=== PATIENT | female | born 1955 | race Caucasian/White ===

== ENCOUNTER 2018-06-30 09:09 | Inpatient (IN) | payer BC ==
[2018-06-30] MEDS ORDERED: SODIUM CHLORIDE 1,000 ML IV STA (09:18)
--- NOTE | 2018-06-30 09:31 | PDOC ---
History of Present Illness - General Chief Complaint: Pain Stated Complaint: RT ARM PAIN, ABD AND LIGHT HEADED Time Seen by Provider: 06/30/18 09:18 History Source: Patient Exam Limitations: No Limitations - History of Present Illness Initial Comments: 06/30/18 10:11 Jordeon 63 YOF with h/o diverticulosis and diverticulitis, breast ca s/p lymph node dissection and mastectomy, presenting with intermittent LLQ AP x 5 days, unrelieved with eating or NSAID. Feels similar to prior uncomplicated diverticulitis. Also right upper arm pain x 1 month, worse with moving; denies trauma or strenuous activity or heavy lifting. No swelling or h/o DVT/PE. No diarrhea, normal BM, nonbloody; no constipation, n/v, f/c, urinary sx. No cp or sob, headache or dizziness. Past History - Past Medical History Allergies/Adverse Reactions: Allergies Allergy/AdvReac Type Severity Reaction Status Date / Time No Known Allergies Allergy Verified 06/30/18 09:13 Home Medications: Ambulatory Orders NK [No Known Home Medication] 06/30/18 Cancer: Yes (Rt breast) COPD: No - Immunization History Immunization Up to Date: Yes - Suicide/Smoking/Psychosocial Hx Smoking History: Never smoked Have you smoked in the past 12 months: No Number of Cigarettes Smoked Daily: 0 Cigars Per Day: 0 Hx Alcohol Use: No Substance Use Type: None Review of Systems - Review of Systems Able to Perform ROS?: Yes Comments:: 06/30/18 10:08 Constitutional: no fevers or chills. HEENT: no headache or dizziness. No congestion. No visual/hearing disturbances. CVS: no cp or syncope. No palpitations. Resp: no sob. No cough. Abdomen: no nausea or vomiting. +abdominal pain. Genitourinary: no urinary sx, hematuria. No dysuria, frequency or urgency. MUSCULOSKELETAL: No joint pain and swelling. No neck or back pain. +arm pain. SKIN: no redness or skin changes, no discharge, no rash. No wounds. Hematologic: no easy bruising/bleeding. NEUROLOGIC: No headache, dizziness, LOC or altered mental status. No weakness, numbness or tingling. All other systems reviewed and negative, or as documented in HPI. *Physical Exam - Vital Signs Last Vital Signs Temp Pulse Resp BP Pulse Ox 98.4 F 104 H 18 137/94 98 06/30/18 09:15 06/30/18 09:15 06/30/18 09:15 06/30/18 09:15 06/30/18 09:15 - Physical Exam Comments: 06/30/18 10:09 General: Well appearing, awake and alert, NAD. HEENT: NCAT, PERRL, EOMI, clear conjunctiva, anicteric, moist mucus membranes, clear oropharynx, no oral lesions.. Neck: neck supple, FROM Resp: CTAB, normal and even respirations, no respiratory distress CVS: RRR, no murmurs, 2+ peripheral pulses throughout, no peripheral edema Abdomen: soft, +LLQ TTP with guarding, no rebound. no peritoneal signs. No CVAT Back: nontender, normal inspection and ROM MSK: no edema, FIELDS x4, ROM intact. No clubbing or cyanosis. normal bulk and tone. Extrem: no calf tenderness Neuro: alert, oriented appropriately; no focal neurologic deficits Skin: warm and well perfused, cap refill <2 sec, normal color Heart Score/ECG Review - ECG Impressions Normal ECG: Yes Comment:: 06/30/18 12:35 EKG normal sinus rhythm, no interval abnormalities, narrow QRS, ST and T wave segments and morphology normal. Nonspecific T wave abnormalities ED Treatment Course - LABORATORY CBC & Chemistry Diagram: 06/30/18 09:20 06/30/18 09:20 Medical Decision Making - Medical Decision Making 06/30/18 12:35 DDx abdominal pain: Renal colic, biliary colic, metabolic/electrolyte derangements. GERD, PUD, esophageal spasm, pancreatitis, hepatitis, constipation , colitis, gastroenteritis, cholecystitis, UTI, pyelonephritis, ileus, SBO, medication side effect, hernia, appendicitis, diverticulitis, mesenteric ischemia. Vital signs reviewed, mild tachycardia, but no fever. Likely from pain, no fever here. tachy resolved on recheck Prior notes reviewed, including admissions, discharges and consultations. laboratory results and imaging reviewed, basic labs and lytes wnl, mild leukocytosis, lactic normal (less likely ischemia vs inflammation), notable for normal LFTs and lipase. UA_with some blood, but no s/s of infection, possible stone. Cardiac panel_trop negative, so doubt ACS with isolated arm pain. EKG normal sinus rhythm, no interval abnormalities, narrow QRS, ST and T wave segments and morphology normal. Nonspecific T wave abnormalities ED course: no acute events, remained stable and well appearing. Clinically improved after interventions, including IVF and tylenol for analgesia, declines morphine/opioids, which is fine. CT a/p to r/o intra abdominal pathology or infection such as diverticulitis. CT with acute diverticulitis, small phlegmon 2.2cm without drainable fluid collection, extraluminal air present. cipro/flagyl abx for diverticulitis. GI cs with Dr. Kennedy/Bert, agree with plan for admission, NPO and hydration, abx, serial exams, pain control. Dispo: admit for acute diverticulitis, admit to Dr. Michaels/[facility] service. pt and family made aware of impression and plan, agreeable 06/30/18 13:14 *DC/Admit/Observation/Transfer Diagnosis at time of Disposition: Diverticulitis - Discharge Dispostion Condition at time of disposition: Good Decision to Admit order: Yes Decision to Admit order Date/Time: 06/30/18 13:06 Decision to Admit Order Category Date Time Status Decision to Admit to Hospital Routine Admission 06/30/18 12:59 Ordered - Referrals Referrals: Justin Liu MD [Primary Care Provider] - Francisco J Kennedy DO [Staff Physician] - - Patient Instructions - Post Discharge Activity
[2018-06-30 09:45] LABS: BASO % 0.9 % (0-2.0); EOS % 0.8 % (0-4.5); HEMATOCRIT 37.8 % (32.4-45.2); HEMOGLOBIN 13.2 GM/dL (10.7-15.3); LYMPH % 16.1 % (8-40); MCH 32.9 pg (25.7-33.7); MCHC 34.9 g/dl (32.0-36.0); MEAN CELL VOLUME 94.4 fl (80-96); MEAN PLT VOLUME 7.9 fl (7.5-11.1); MONO % 6.9 % (3.8-10.2); NEUT % 75.3 % (42.8-82.8); PLATELET COUNT 275 K/MM3 (134-434); RDW 13.6 % (11.6-15.6); WHITE BLOOD COUNT 10.3 K/mm3 (4.0-10.0)
[2018-06-30] MEDS ORDERED: morphine CARPU-JECT 4 MG/1 ML DISP.SYRIN IVPUSH ONE (10:01)
[2018-06-30 10:07] LABS: ALBUMIN 3.5 g/dl (3.4-5.0); ALK PHOS 101 U/L (45-117); ANION GAP 11 MMOL/L (8-16); BILIRUBIN,TOTAL 0.8 mg/dL (0.2-1); BLOOD UREA NITROGEN 9 mg/dL (7-18); CALCIUM 8.8 mg/dL (8.5-10.1); CHLORIDE 104 mmol/L (98-107); CO2 26 mmol/L (21-32); CREATININE 0.7 mg/dL (0.55-1.3); GLUCOSE,RANDOM 129 mg/dL (74-106); LIPASE 266 U/L (73-393); SGOT/AST 24 U/L (15-37); SGPT/ALT 28 U/L (13-61); SODIUM 142 mmol/L (136-145); TOT PROT 6.7 g/dl (6.4-8.2)
[2018-06-30 10:16] LABS: URINE APPEARANCE CLEAR; URINE BILIRUBIN NEGATIVE (<2.0 mg/dL); URINE COLOR STRAW; URINE GLUCOSE (UA) NEGATIVE (NEGATIVE); URINE KETONE NEGATIVE (NEGATIVE); URINE LEUK ESTERASE NEGATIVE (NEGATIVE); URINE NITRITE NEGATIVE (NEGATIVE); URINE PROTEIN NEGATIVE (NEGATIVE); URINE UROBILINOGEN NEGATIVE mg/dL (0.2-1.0)
[2018-06-30 10:20] LABS: EPI CELLS RARE /HPF (FEW)
[2018-06-30] MEDS ORDERED: CIPROFLOXACIN 400 MG/D5W 400 MG/200 ML IVPB IVPB ONE (12:23)
--- NOTE | 2018-06-30 12:30 | EKG ---
Test Reason : Blood Pressure : / mmHG Vent. Rate : 092 BPM Atrial Rate : 092 BPM P-R Int : 182 ms QRS Dur : 082 ms QT Int : 378 ms P-R-T Axes : 055 009 048 degrees QTc Int : 467 ms NORMAL SINUS RHYTHM NONSPECIFIC ST AND T WAVE ABNORMALITY ABNORMAL ECG WHEN COMPARED WITH ECG OF 11-SEP-2013 23:04, NO SIGNIFICANT CHANGE WAS FOUND Confirmed by KEN HENRIQUEZ MD ([id number]) on 06/30/2018 12:30:25 PM Referred By: Confirmed By:KEN HENRIQUEZ MD
[2018-06-30] MEDS ORDERED: ACETAMINOPHEN 1000 MG/100 ML VIAL (NON FORMULARY) IVPB ONE (12:34)
[2018-06-30] MEDS ORDERED: ACETAMINOPHEN INJECTION 100 ML IVPB ONE (12:37)
[2018-06-30] MEDS ORDERED: MORPHINE SULFATE 2 MG/ML VIAL IVPUSH PRN (13:29)
--- NOTE | 2018-06-30 13:32 | HP ---
Admitting History and Physical - Primary Care Physician PCP: Justin Liu - Admission Chief Complaint: abd pain History of Present Illness: 63 yrs old female admitted for acute diverticulitis Has been having abdominal pain since Monday - left sided, no radiation of pain - no loose stools or blood in stools. Denies fever or chills Similar history of diverticulitis On IV antibiotics - received Cipro and Flagyl in ER History Source: Patient Limitations to Obtaining History: No Limitations - Past Medical History Pulmonary: Yes: COPD Gastrointestinal: Yes: Diverticulitis, Diverticulosis Heme/Onc: Yes: Cancer (breast ca) - Smoking History Smoking history: Never smoked Have you smoked in the past 12 months: No Aproximately how many cigarettes per day: 0 - Alcohol/Substance Use Hx Alcohol Use: No Home Medications - Allergies Allergies/Adverse Reactions: Allergies Allergy/AdvReac Type Severity Reaction Status Date / Time No Known Allergies Allergy Verified 06/30/18 09:13 - Home Medications Home Medications: Ambulatory Orders NK [No Known Home Medication] 06/30/18 Review of Systems - Review of Systems Constitutional: denies: Chills, Fever, Lethargy, Loss of Appetite, Unintentional Wgt. Loss, Weakness Gastrointestinal: reports: Abdominal Pain. denies: Constipation, Diarrhea, Indigestion, Nausea Physical Examination Vital Signs: Vital Signs Temperature 98.8 F 06/30/18 13:04 Pulse Rate 80 06/30/18 13:04 Respiratory Rate 18 06/30/18 13:04 Blood Pressure 130/87 06/30/18 13:04 O2 Sat by Pulse Oximetry (%) 98 06/30/18 13:04 Constitutional: Yes: No Distress, Calm Cardiovascular: Yes: Regular Rate and Rhythm Respiratory: Yes: Diminished. No: Rhonchi Gastrointestinal: Yes: Normal Bowel Sounds, Soft, Tenderness (left lowe quadrant ). No: Abdomen, Obese Edema: No Psychiatric: Yes: WNL Labs: CBC, BMP 06/30/18 09:20 06/30/18 09:20 Imaging - Results Cat Scan: Report Reviewed EKG: Image Reviewed (NSR) Problem List - Problems (1) COPD (chronic obstructive pulmonary disease) Code(s): J44.9 - CHRONIC OBSTRUCTIVE PULMONARY DISEASE, UNSPECIFIED (2) Diverticulitis Code(s): K57.92 - DVTRCLI OF INTEST, PART UNSP, W/O PERF OR ABSCESS W/O BLEED Qualifiers: Diverticulitis site: large intestine Diverticulitis complication: with abscess (3) History of breast cancer Code(s): Z85.3 - PERSONAL HISTORY OF MALIGNANT NEOPLASM OF BREAST Assessment/Plan PLAN NPO IV fluids pain control prn Stool studies IV antibiotics GI eval-- spoke with Dr Noel Surgical eval for phlegmon Smoking cessation
[2018-06-30] MEDS: D5-1/2NS+20 MEQ KCL - 20 MEQ/1,000 ML INFUS.BAG IV SCH ×2 (14:32→15:31)
--- NOTE | 2018-06-30 15:11 | CON.GI ---
Consult Consult Specialty:: Gastroenterology Referred by:: Dr Bree Barba Reason for Consultation:: Abdominal pain - History of Present Illness Chief Complaint: Left abdominal pain since06/26 History of Present Illness: 63F has a constant left abdominal pain since 06/26 which has increased in intensity and prompted her to come to the ER. She tells me that it is similar to 3 previous episodes of diverticulitis. She denies chills or fever but she has been afraid to eat as it aggravates her pain. She has been moving her bowels daily. She had a colonoscopy with Dr Crowe about 3 years ago which yielded multiple polyps - History Source History Provided By: Patient Limitations to Obtaining History: No Limitations - Past Medical History Pulmonary: Yes: Asthma Gastrointestinal: Yes: Diverticulitis (x 3 previous episodes), Other (colon polyp removed by Dr Crowe) Heme/Onc: Yes: Cancer (Right breast cancer with right lumpectomy 2006 with chemorx and RT) - Past Surgical History Past Surgical History: Yes: , Mastectomy (right lumpectomy 2006) - Alcohol/Substance Use Hx Alcohol Use: No History of Substance Use: reports: None - Smoking History Smoking history: Current every day smoker Have you smoked in the past 12 months: No Aproximately how many cigarettes per day: 10 - Social History Usual Living Arrangement: With Spouse ADL: Independent Place of : Other ([place]) Came to [place] (year): age 15 History of Recent Travel: No Home Medications - Allergies Allergies/Adverse Reactions: Allergies Allergy/AdvReac Type Severity Reaction Status Date / Time No Known Allergies Allergy Verified 06/30/18 09:13 - Home Medications Home Medications: Ambulatory Orders NK [No Known Home Medication] 06/30/18 Family Disease History - Family Disease History Family Disease History: CA: Mother (breast cancer survivor), Other: Father ( MVA) Review of Systems - Review of Systems Constitutional: reports: Loss of Appetite Eyes: reports: No Symptoms HENT: reports: No Symptoms Neck: reports: No Symptoms Cardiovascular: reports: No Symptoms Respiratory: reports: No Symptoms Gastrointestinal: reports: Abdominal Pain Genitourinary: reports: No Symptoms Neurological: reports: No Symptoms Physical Exam-GI Vital Signs: Vital Signs Temperature 98.8 F 06/30/18 13:04 Pulse Rate 80 06/30/18 13:04 Respiratory Rate 18 06/30/18 13:04 Blood Pressure 130/87 06/30/18 13:04 O2 Sat by Pulse Oximetry (%) 97 06/30/18 14:16 CBC,CMP WBC 10.3 K/mm3 (4.0-10.0) H 06/30/18 09:20 RBC 4.00 M/mm3 (3.60-5.2) 06/30/18 09:20 Hgb 13.2 GM/dL (10.7-15.3) 06/30/18 09:20 Hct 37.8 % (32.4-45.2) 06/30/18 09:20 MCV 94.4 fl (80-96) 06/30/18 09:20 MCH 32.9 pg (25.7-33.7) 06/30/18 09:20 MCHC 34.9 g/dl (32.0-36.0) 06/30/18 09:20 RDW 13.6 % (11.6-15.6) 06/30/18 09:20 Plt Count 275 K/MM3 (134-434) D 06/30/18 09:20 MPV 7.9 fl (7.5-11.1) 06/30/18 09:20 Absolute Neuts (auto) 7.8 K/mm3 (1.5-8.0) 06/30/18 09:20 Neutrophils % 75.3 % (42.8-82.8) 06/30/18 09:20 Lymphocytes % 16.1 % (8-40) D 06/30/18 09:20 Monocytes % 6.9 % (3.8-10.2) 06/30/18 09:20 Eosinophils % 0.8 % (0-4.5) 06/30/18 09:20 Basophils % 0.9 % (0-2.0) 06/30/18 09:20 Nucleated RBC % 0 % (0-0) 06/30/18 09:20 Sodium 142 mmol/L (136-145) 06/30/18 09:20 Potassium 4.0 mmol/L (3.5-5.1) 06/30/18 09:20 Chloride 104 mmol/L (98-107) 06/30/18 09:20 Carbon Dioxide 26 mmol/L (21-32) 06/30/18 09:20 Anion Gap 11 MMOL/L (8-16) 06/30/18 09:20 BUN 9 mg/dL (7-18) 06/30/18 09:20 Creatinine 0.7 mg/dL (0.55-1.3) 06/30/18 09:20 Creat Clearance w eGFR > 60 (>60) 06/30/18 09:20 Random Glucose 129 mg/dL (74-106) H 06/30/18 09:20 Lactic Acid 1.4 mmol/L (0.4-2.0) 06/30/18 09:30 Calcium 8.8 mg/dL (8.5-10.1) 06/30/18 09:20 Total Bilirubin 0.8 mg/dL (0.2-1) 06/30/18 09:20 AST 24 U/L (15-37) 06/30/18 09:20 ALT 28 U/L (13-61) 06/30/18 09:20 Alkaline Phosphatase 101 U/L (45-117) 06/30/18 09:20 Troponin I < 0.02 ng/ml (0.00-0.05) 06/30/18 09:20 Total Protein 6.7 g/dl (6.4-8.2) 06/30/18 09:20 Albumin 3.5 g/dl (3.4-5.0) 06/30/18 09:20 Lipase 266 U/L (73-393) 06/30/18 09:20 Current Medications Generic Name Dose Route Start Last Admin Trade Name Freq PRN Reason Stop Dose Admin Enoxaparin Sodium 40 mg 07/01/18 10:00 Lovenox - SQ DAILY ASYA Potassium Chloride/Dextrose/Sod Cl 20 meq in 1,000 mls @ 83 mls/hr 06/30/18 13 :30 06/30/18 14:32 D5-1/2ns+20 Meq Kcl - IV 83 mls/hr ASDIR ASYA Administration Metronidazole 500 mg in 100 mls @ 100 mls/hr 06/30/18 18:00 Flagyl 500mg Premixed Ivpb - IVPB Q8H-IV ASYA Levofloxacin 500 mg in 100 mls @ 100 mls/hr 07/01/18 10:00 Levaquin 500 Mg Premixed Ivpb - IVPB DAILY ASYA Protocol Morphine Sulfate 2 mg 06/30/18 13:29 Morphine Sulfate IVPUSH Q4H PRN PAIN LEVEL 6-10 Constitutional: Yes: Well Nourished Eyes: Yes: Conjunctiva Clear HENT: Yes: Atraumatic Neck: Yes: Supple Cardiovascular: Yes: Regular Rate and Rhythm Respiratory: Yes: CTA Bilaterally Gastrointestinal Inspection: Yes: Scars (healed Pfannnsteil incision) ...Auscultate: Yes: Normoactive Bowel Sounds ...Palpate: Yes: Soft, Tenderness (LLQ, no rebound) ...Rectal Exam: Yes: Guaiac Negative (no masses, brown g neg stool) Labs: CBC, BMP 06/30/18 09:20 06/30/18 09:20 Imaging - Results Cat Scan: Report Reviewed (Teja Austin Name: [facility] DEPARTMENT OF RADIOLOGY Phys: Marcos Harmon MD : 1955 Age: 63 Sex: F [facility] Acct: [id number] Loc: [address] Exam Date: 06/30/18 Status: [place] [address] Unit Number: [id number] EXAM#: TYPE/EXAM: RESULT: [id number] CT/ABDOMEN PELVIS CT WITH CONTR Rule out diverticulitis. Left lower quadrant pain. CT scan of the abdomen and pelvis following oral and intravenous contrast. Coronal and sagittal reformatted images were obtained 95 cc of Omnipaque 350 was intravenously injected Comparison: Compared to prior CT scan of the abdomen and pelvis dated 05/27/2014 Visualized lung base appears unremarkable and the heart is within normal limits in size. Evaluation of the liver, spleen, pancreas, gallbladder, both adrenal glands and both kidneys appear unremarkable except for an exophytic right renal lesion likely representing a cyst measuring 1.3 cm and slightly lobulated contour of the left renal lower pole that may be due to chronic scarring Partially distended stomach without gross wall thickening. There is no evidence of small bowel obstruction. Normal-appearing terminal ileum and appendix. Normal stool burden in the colon. There are multiple diverticula in the entire colon mainly in the descending and sigmoid colon. There is thickening of the distal descending colon wall down to its junction with the proximal sigmoid colon with significant stranding of the surrounding fat consistent with acute diverticulitis. There is a questionable phlegmon seen anteriorly measuring approximately 2.2 cm with likely extraluminal air pockets. No drainable collection/abscess is identified. Moderately distended urinary bladder without wall thickening. Normal size uterus. Perirectal and pericecal fat are clear. Visualized osseous structures appear intact except for mild levoscoliosis of the lumbar spine and minimal retrolisthesis of L3 over L4, likely degenerative. IMPRESSION: Diverticulosis coli with acute diverticulitis of the distal descending colon and probable small phlegmon measuring 2.2 cm with extraluminal air pockets. No drainable collection is identified. However, close follow-up CT scan is recommended for further evaluation. Posttreatment of the colon is also recommended to rule out any underlying pathology. Reported By: Giancarlo Thakkar MD 06/30/18 1233 MARCOS HARMON Technologist: Antony Patterson Transcribed Date/Time: 06/30/18 1233 Motor Winder: Giancarlo Thakkar Printed Date/Time: By: Signed by: Giancarlo Thakkar Signed on: 30-Jun-2018 12:33) Problem List - Problems (1) Diverticulitis Assessment/Plan: The clinical picture and imaging are entirely consistent with recurrent diverticulitis. Given the phlegmon Abraham needs hospitalization for observation, IV antibiotics,bowel rest and IV fluids. We discussed the potential need for surgery given the recurring nature of her diverticulittis and a surgical consultation should be considered. I advised a repeat colonoscopy after 8 weeks of convalescence Code(s): K57.92 - DVTRCLI OF INTEST, PART UNSP, W/O PERF OR ABSCESS W/O BLEED Qualifiers: Diverticulitis site: large intestine Diverticulitis complication: with abscess (2) Abdominal pain Code(s): R10.9 - UNSPECIFIED ABDOMINAL PAIN (3) History of breast cancer Code(s): Z85.3 - PERSONAL HISTORY OF MALIGNANT NEOPLASM OF BREAST (4) History of colonic polyps Code(s): Z86.010 - PERSONAL HISTORY OF COLONIC POLYPS (5) Asthma Code(s): J45.909 - UNSPECIFIED ASTHMA, UNCOMPLICATED Assessment/Plan IV antibiotics, Bowel rest IV fluids Surgical consultation
[2018-06-30 15:46] VITALS: BMI 25.7
[2018-07-01] MEDS: D5-1/2NS+20 MEQ KCL - 20 MEQ/1,000 ML INFUS.BAG IV SCH ×2 (05:55→20:00)
[2018-07-01 09:14] LABS: BASO % 0.8 % (0-2.0); EOS % 1.4 % (0-4.5); HEMATOCRIT 34.8 % (32.4-45.2); HEMOGLOBIN 12.3 GM/dL (10.7-15.3); LYMPH % 20.9 % (8-40); MCH 33.1 pg (25.7-33.7); MCHC 35.4 g/dl (32.0-36.0); MEAN CELL VOLUME 93.6 fl (80-96); MEAN PLT VOLUME 7.8 fl (7.5-11.1); MONO % 6.7 % (3.8-10.2); NEUT % 70.2 % (42.8-82.8); PLATELET COUNT 253 K/MM3 (134-434); RBC 3.72 M/mm3 (3.60-5.2); RDW 13.2 % (11.6-15.6); WHITE BLOOD COUNT 7.4 K/mm3 (4.0-10.0)
[2018-07-01] MEDS: ENOXAPARIN NA (PORCINE) 40 MG/0.4 ML DISP.SYRIN SQ SCH (09:17)
[2018-07-01 09:38] LABS: ALK PHOS 90 U/L (45-117); ANION GAP 9 MMOL/L (8-16); BILIRUBIN,TOTAL 0.6 mg/dL (0.2-1); BLOOD UREA NITROGEN 6 mg/dL (7-18); CHLORIDE 108 mmol/L (98-107); CO2 26 mmol/L (21-32); CREATININE 0.6 mg/dL (0.55-1.3); GLUCOSE,RANDOM 108 mg/dL (74-106); POTASSIUM 3.9 mmol/L (3.5-5.1); SGOT/AST 14 U/L (15-37); SGPT/ALT 20 U/L (13-61); SODIUM 142 mmol/L (136-145)
--- NOTE | 2018-07-01 12:03 | PN ---
Progress Note (short form) - Note Progress Note: pain is better pt is hungry Vital Signs - 24 hr 06/30/18 06/30/18 06/30/18 13:04 14:16 15:34 Temperature 98.8 F 97.8 F Pulse Rate 71 Pulse Rate [ 80 Right Radial] Respiratory 18 16 Rate Blood Pressure 125/73 Blood Pressure 130/87 [Left Arm] O2 Sat by Pulse 98 97 97 Oximetry (%) 06/30/18 06/30/18 07/01/18 18:00 20:09 06:00 Temperature 98.4 F 98.7 F Pulse Rate 71 80 Pulse Rate [ Right Radial] Respiratory 18 22 H Rate Blood Pressure 125/80 146/85 Blood Pressure [Left Arm] O2 Sat by Pulse 97 Oximetry (%) 07/01/18 07/01/18 07:58 09:00 Temperature 98.2 F Pulse Rate 74 Pulse Rate [ Right Radial] Respiratory 18 Rate Blood Pressure 125/72 Blood Pressure [Left Arm] O2 Sat by Pulse 97 Oximetry (%) Current Medications Generic Name Dose Route Start Last Admin Trade Name Freq PRN Reason Stop Dose Admin Enoxaparin Sodium 40 mg 07/01/18 10:00 07/01/18 09:17 Lovenox - SQ 40 mg DAILY ASYA Administration Potassium Chloride/Dextrose/Sod Cl 20 meq in 1,000 mls @ 83 mls/hr 06/30/18 13 :30 07/01/18 05:55 D5-1/2ns+20 Meq Kcl - IV 83 mls/hr ASDIR ASYA Administration Metronidazole 500 mg in 100 mls @ 100 mls/hr 06/30/18 18:00 07/01/18 10:14 Flagyl 500mg Premixed Ivpb - IVPB 100 mls/hr Q8H-IV ASYA Administration Levofloxacin 500 mg in 100 mls @ 100 mls/hr 07/01/18 10:00 07/01/18 09:16 Levaquin 500 Mg Premixed Ivpb - IVPB 100 mls/hr DAILY ASYA Administration Protocol Morphine Sulfate 2 mg 06/30/18 13:29 Morphine Sulfate IVPUSH Q4H PRN PAIN LEVEL 6-10 Laboratory Results - last 24 hr 07/01/18 07/01/18 09:00 09:00 WBC 7.4 RBC 3.72 Hgb 12.3 Hct 34.8 MCV 93.6 MCH 33.1 MCHC 35.4 RDW 13.2 Plt Count 253 MPV 7.8 Absolute Neuts (auto) 5.2 Neutrophils % 70.2 Lymphocytes % 20.9 D Monocytes % 6.7 Eosinophils % 1.4 Basophils % 0.8 Nucleated RBC % 0 Sodium 142 Potassium 3.9 Chloride 108 H Carbon Dioxide 26 Anion Gap 9 BUN 6 L Creatinine 0.6 Creat Clearance w eGFR > 60 Random Glucose 108 H Calcium 8.0 L Total Bilirubin 0.6 AST 14 L ALT 20 Alkaline Phosphatase 90 Total Protein 6.0 L Albumin 3.0 L S1 S2 RRR Lungs clear Abd- soft , tenderness decreased, BS+ No edema PLAN iv antibiotics surgical eval may start clears continue with meds Problem List - Problems (1) COPD (chronic obstructive pulmonary disease) Code(s): J44.9 - CHRONIC OBSTRUCTIVE PULMONARY DISEASE, UNSPECIFIED (2) Diverticulitis Code(s): K57.92 - DVTRCLI OF INTEST, PART UNSP, W/O PERF OR ABSCESS W/O BLEED Qualifiers: Diverticulitis site: large intestine Diverticulitis complication: with abscess (3) History of breast cancer Code(s): Z85.3 - PERSONAL HISTORY OF MALIGNANT NEOPLASM OF BREAST
[2018-07-01] MEDS: PANTOPRAZOLE SODIUM 40 MG VIAL IVPUSH SCH (14:37)
--- NOTE | 2018-07-01 15:48 | PN ---
GI Progress Note Subjective: GI NOte: Pain free an hungry. O fever. - Objective Vital Signs: Vital Signs Temperature 97.5 F L 07/01/18 14:40 Pulse Rate 74 07/01/18 14:40 Respiratory Rate 18 07/01/18 14:40 Blood Pressure 135/79 07/01/18 14:40 O2 Sat by Pulse Oximetry (%) 97 07/01/18 09:00 Laboratory Tests 06/30/18 07/01/18 09:20 09:00 WBC 10.3 H 7.4 Constitutional: No Distress ...Auscultate: Yes: Normoactive Bowel Sounds ...Palpate: Yes: Soft, Other (nontender) Labs: CBC, BMP 07/01/18 09:00 07/01/18 09:00 Problem List - Problems (1) Diverticulitis Assessment/Plan: Resolving diverticulitis. Will advanced diet Code(s): K57.92 - DVTRCLI OF INTEST, PART UNSP, W/O PERF OR ABSCESS W/O BLEED Qualifiers: Diverticulitis site: large intestine Diverticulitis complication: with abscess (2) Abdominal pain Code(s): R10.9 - UNSPECIFIED ABDOMINAL PAIN (3) History of breast cancer Code(s): Z85.3 - PERSONAL HISTORY OF MALIGNANT NEOPLASM OF BREAST (4) History of colonic polyps Code(s): Z86.010 - PERSONAL HISTORY OF COLONIC POLYPS (5) Asthma Code(s): J45.909 - UNSPECIFIED ASTHMA, UNCOMPLICATED
--- NOTE | 2018-07-01 18:39 | CONSULT ---
Consult Consult Specialty:: surgery Reason for Consultation:: Abdominal pain - History of Present Illness Chief Complaint: LLQ pain History of Present Illness: 63 yr old female with known history of Diverticular disease 3/4 previous episodes presents with constant LLQ pain. Denies fever orchills Denies any changes in bowel habits - History Source History Provided By: Patient Limitations to Obtaining History: No Limitations - Past Medical History Pulmonary: Yes: COPD Gastrointestinal: Yes: Diverticulitis, Diverticulosis - Past Surgical History Past Surgical History: Yes: , Mastectomy (right lumpectomy 2006) - Alcohol/Substance Use Hx Alcohol Use: No History of Substance Use: reports: None - Smoking History Smoking history: Never smoked Have you smoked in the past 12 months: No Aproximately how many cigarettes per day: 0 - Social History Usual Living Arrangement: With Spouse ADL: Independent History of Recent Travel: No Home Medications - Allergies Allergies/Adverse Reactions: Allergies Allergy/AdvReac Type Severity Reaction Status Date / Time No Known Allergies Allergy Verified 06/30/18 09:13 - Home Medications Home Medications: Ambulatory Orders NK [No Known Home Medication] 06/30/18 Family Disease History - Family Disease History Family Disease History: CA: Mother (breast cancer survivor), Other: Father ( MVA) Physical Exam Vital Signs: Vital Signs Temperature 97.5 F L 07/01/18 14:40 Pulse Rate 74 07/01/18 14:40 Respiratory Rate 18 07/01/18 14:40 Blood Pressure 135/79 07/01/18 14:40 O2 Sat by Pulse Oximetry (%) 97 07/01/18 09:00 Labs: CBC, BMP 07/01/18 09:00 07/01/18 09:00 Imaging - Results Cat Scan: Report Reviewed, Image Reviewed Problem List - Problems (1) Diverticulitis Code(s): K57.92 - DVTRCLI OF INTEST, PART UNSP, W/O PERF OR ABSCESS W/O BLEED Qualifiers: Diverticulitis site: large intestine Diverticulitis complication: with abscess Assessment/Plan 63 yr old female with recurrent episode of acute diverticulitis with localized perforation clinically improved since admission, tolerating clears Exam completely benign. Small collection too small for percutaneous drainage. No need for urgent surgical intervention. Continue antibiotics and advance diet as tolerated. Should consider colonoscopy in 6 weeks and elective sigmoid resection in the new year, since it is quite likely that she will continue to suffer from recurrent episodes with increasing severity.
[2018-07-02] MEDS: PANTOPRAZOLE SODIUM 40 MG VIAL IVPUSH SCH (09:20)
[2018-07-02] MEDS: ENOXAPARIN NA (PORCINE) 40 MG/0.4 ML DISP.SYRIN SQ SCH (09:20)
--- NOTE | 2018-07-02 12:25 | DS ---
Physical Examination Vital Signs: Vital Signs Temperature 98.3 F 07/02/18 05:00 Pulse Rate 73 07/02/18 05:00 Respiratory Rate 16 07/02/18 05:00 Blood Pressure 131/78 07/02/18 05:00 O2 Sat by Pulse Oximetry (%) 97 07/01/18 20:32 Findings/Remarks: Patient seen and examined. Feels much better tolerating regular diet Denies pain Afebrile wants to go home All follow-ups noted Patient reports she has GI--- and she will follow with her GI--- I advised she needs to have follow-up colonoscopy in 6-8 weeks--Patient in agreement Constitutional: Yes: No Distress, Calm Neck: Yes: Supple Cardiovascular: Yes: Regular Rate and Rhythm Respiratory: Yes: CTA Bilaterally Gastrointestinal: Yes: Normal Bowel Sounds, Soft Edema: No Neurological: Yes: Alert Psychiatric: Yes: Alert Labs: CBC, BMP 07/01/18 09:00 07/01/18 09:00 Discharge Summary Reason For Visit: DIVERTICULITIS OF INTESTINE Current Active Problems Abdominal pain (Acute) Asthma (Acute) COPD (chronic obstructive pulmonary disease) (Acute) Diverticulitis (Acute) History of breast cancer (Acute) History of colonic polyps (Acute) Hospital Course: 63 yrs old female admitted for acute diverticulitis Treated with IV antibiotics GI and surgery followed Significantly improved Will discharge on by mouth antibiotics Plan as outlined--follow with GI and PMD . Colonoscopy in 6-8 weeks Also possible elective surgery as outpatient Patient in agreement with all about patient says she will coordinate with her PMD Counseling provided about diet also Medications prescribed to her pharmacy discussed with nursing staff also Discharge time approximately 25 minutes--- reexamining documenting and coordinating care Condition: Good - Instructions Referrals: Francisco J Kennedy DO [Staff Physician] - Justin Liu MD [Primary Care Provider] - Disposition: HOME - Home Medications Comprehensive Discharge Medication List: Ambulatory Orders Levofloxacin [Levaquin] 500 mg PO DAILY #7 tablet 07/02/18 metroNIDAZOLE [Flagyl -] 500 mg PO TID #21 tablet 07/02/18
[2018-07-02 12:39] VITALS: BP 118/69; PULSE 74; TEMP 98.4
== END 2018-07-02 14:03 | disposition home or self-care (01) | DRG 392 ==
LOC: JER 09:09 → JERBED 12:59 → J6S 15:11
PROVIDERS: ADMIT Internal Medicine; ATTEND Internal Medicine
DX: K57.92 Diverticulitis of intestine, part unspecified, without perforation or abscess without bleeding (principal); J44.9 Chronic obstructive pulmonary disease, unspecified; Z85.3 Personal history of malignant neoplasm of breast
CPT/HCPCS: 36415; 74177-TC; 80053; 81003; 81015; 83605; 83690; 84484; 85025; 93005; 93010; 99285-25; J0131; J7030

== ENCOUNTER 2021-11-15 05:22 | Day surgery (SDC) | payer OTHER ==
[2021-11-10 15:28] VITALS: BMI 23.9
[2021-11-15] MEDS ORDERED: ACETAMINOPHEN 325 MG TABLET (FP) PO PRN (06:11)
[2021-11-15] MEDS ORDERED: IBUPROFEN 400 MG TABLET (FP) PO PRN (06:11)
[2021-11-15] MEDS ORDERED: oxyCODONE HCL 5 MG TABLET PO PRN ×3 (06:11→12:14)
[2021-11-15] MEDS ORDERED: ONDANSETRON 4 MG/2 ML VIAL IVPUSH PRN ×2 (06:11→10:08)
[2021-11-15] MEDS ORDERED: PROPOFOL 20 ML ONE (09:22)
[2021-11-15] MEDS ORDERED: MIDAZOLAM HCL 2 MG/2 ML SINGLE DOSE VIAL ONE ×2 (09:22)
[2021-11-15] MEDS ORDERED: LIDOCAINE HCL 1% EPINEPHRINE 1:200,000 30 ML VIAL (PF) ONE (09:24)
[2021-11-15] MEDS ORDERED: LIDOCAINE 1%/EPI 1:100000 (20 ML MULTI DOSE VIAL) IJ ONE ×2 (09:43)
[2021-11-15] MEDS ORDERED: PROMETHAZINE HCL 25 MG/1 ML VIAL IVPUSH PRN (10:08)
[2021-11-15 14:36] VITALS: PULSE 76; TEMP 97.8
[2021-11-15 14:44] VITALS: BP 132/72
== END 2021-11-15 12:15 | disposition home or self-care (01) ==
LOC: JASU-SURG 05:22
PROVIDERS: ATTEND Obstetrics & Gynecology
PROC: 0UBC7ZX Excision of Cervix, Via Natural or Artificial Opening, Diagnostic (ICD-10-PCS; principal; 2021-11-15 09:00)
DX: D06.7 Carcinoma in situ of other parts of cervix (principal); Z85.3 Personal history of malignant neoplasm of breast
CPT/HCPCS: 88305-TC; 88307-TC; 94760